=== PATIENT | female | born 1990 | race Caucasian/White ===

== ENCOUNTER 2016-08-18 12:42 | Emergency (ER) | payer OTHER ==
[~2016-08-18] VITALS: Ht 170.2 cm; Wt 92.7 kg
[~2016-08-18 12:42] MED LIST: FIORICET 50-301 EACH PO; FLONASE16 G1 BOTH NARES; KEPPRA500 MG PO; LIBRIUM25 MG PO; MUCUS RELIEF600 M1 PO; TORADOL10 MG PO
[2016-08-18 13:50] LABS: HEMATOCRIT 37.7 % (36.0-46.0); MCHC 34.7 G/DL (30.0-36.0); MEAN PLAT.VOLUME 11.6 uM^3 (9.5-12.4); PLATELET COUNT 203 K/uL (156-360); RBC DIS.WIDTH-CV 12.2 % (11.8-14.6); RBC DIS.WIDTH-SD 39.8 % (39-53); WHITE BLOOD COUNT 6.7 K/uL (4.1-10.2)
[2016-08-18 13:55] LABS: CHLORIDE 108 mEq/L (99-109); POTASSIUM 4.1 mEq/L (3.7-5.4); SODIUM 139 mEq/L (136-147)
[2016-08-18 13:57] LABS: GLUCOSE 100 mg/dL (70-99)
[2016-08-18 13:58] LABS: ANION GAP 7 MEQ/L (2-14)
[2016-08-18 14:01] LABS: GFR ESTIMATE (CALCULATED) > 59 mL/min/
[2016-08-18 14:02] LABS: UREA NITROGEN (BUN) 13 mg/dL (9-23)
[2016-08-18 17:33] VITALS: BP 131/64
== END 2016-08-18 17:34 | disposition home or self-care (01) ==
LOC: EME 12:42 → EXP 12:42
DX: R55 Syncope and collapse (principal); S39.91XA Unspecified injury of abdomen, initial encounter; R10.9 Unspecified abdominal pain; B34.9 Viral infection, unspecified; Y04.8XXA Assault by other bodily force, initial encounter; Y99.0 Civilian activity done for income or pay; R56.9 Unspecified convulsions
CPT/HCPCS: 71020; 74177; 80048; 84702; 84703; 85027; 93005; 99281; 99284

== ENCOUNTER 2017-02-13 09:46 | Emergency (ER) | payer OTHER ==
[~2017-02-13] VITALS: Ht 170.2 cm; Wt 93.4 kg
[2017-02-13] MEDS ORDERED: FIORICET,ESG1 TABLET PO (13:47)
[2017-02-13 13:50] VITALS: BP 103/61
== END 2017-02-13 14:21 | disposition home or self-care (01) ==
LOC: EME 09:46
DX: R51 Headache (principal); R56.9 Unspecified convulsions; Z86.011 Personal history of benign neoplasm of the brain
CPT/HCPCS: 84702; 99281; 99285; J0780; J1100; J1885; J7030

== ENCOUNTER 2017-03-19 08:29 | Emergency (ER) | payer OTHER ==
[~2017-03-19] VITALS: Ht 170.2 cm; Wt 90.9 kg
[~2017-03-19 08:29] MED LIST changes: +FIORICET,ESG1 TABLET PO
[2017-03-19 09:29] LABS: HEMATOCRIT 37.8 % (36.0-46.0); MCH 31.6 PG (29.0-34.0); MCHC 33.6 G/DL (30.0-36.0); MEAN PLAT.VOLUME 11.1 uM^3 (9.5-12.4); PLATELET COUNT 203 K/uL (156-360); RBC DIS.WIDTH-CV 11.9 % (11.8-14.6); RBC DIS.WIDTH-SD 41.1 % (39-53); RED BLOOD COUNT 4.02 M/uL (3.80-5.20); WHITE BLOOD COUNT 6.6 K/uL (4.1-10.2)
[2017-03-19 09:41] LABS: CHLORIDE 108 mEq/L (99-109); POTASSIUM 4.1 mEq/L (3.7-5.4); SODIUM 138 mEq/L (136-147)
[2017-03-19 09:42] LABS: GLUCOSE 105 mg/dL (70-99)
[2017-03-19 09:44] LABS: ANION GAP 7 MEQ/L (2-14)
[2017-03-19 09:46] LABS: GFR ESTIMATE (CALCULATED) > 59 mL/min/
[2017-03-19 09:47] LABS: UREA NITROGEN (BUN) 15 mg/dL (9-23)
[2017-03-19 09:57] LABS: QUANTITATIVE HCG < 4.0 MIU/ML
[2017-03-19 10:03] LABS: ADD MIUA? YES; BILIRUBIN NEGATIVE; BLOOD NEGATIVE; COLOR YELLOW ((YELLOW)); GLUCOSE (STRIP) NEGATIVE; KETONES NEGATIVE; LEUKOCYTES NEGATIVE; NITRITE NEGATIVE; PROTEIN (STRIP) NEGATIVE; UROBILINOGEN 0.2 MG/DL (0.2-1.0)
[2017-03-19] MEDS ORDERED: MOTRIN800 MG PO (10:04)
[2017-03-19] MEDS ORDERED: LIDODERM 5% P1 PATCH TD (10:04)
[2017-03-19] MEDS ORDERED: FLEXERIL10 MG PO (10:04)
[2017-03-19] MEDS ORDERED: ZOFRAN ODT4 MG PO (10:04)
[2017-03-19 10:09] LABS: BACTERIA RARE /HPF; EPITHELIAL CELLS RARE /HPF; MUCUS TRACE /LPF; RED BLOOD CELLS 0-5 /HPF (0-5); WHITE BLOOD CELLS 0-5 /HPF (0-5)
[2017-03-19 10:59] VITALS: BP 112/62
== END 2017-03-19 11:01 | disposition home or self-care (01) ==
LOC: EME 08:29
PROVIDERS: Nurse Practitioner Family
DX: S39.012A Strain of muscle, fascia and tendon of lower back, initial encounter (principal); M54.41 Lumbago with sciatica, right side; X50.1XXA Overexertion from prolonged static or awkward postures, initial encounter; Y99.0 Civilian activity done for income or pay
CPT/HCPCS: 72100; 80048; 81003; 84702; 85027; 99281; 99284